=== PATIENT | male | born 1985 | race Asian ===

== ENCOUNTER 2020-02-01 02:49 | Inpatient (IN) | payer BC, OTHER ==
[2020-02-01] MEDS ORDERED: Sodium Chloride 0.9% 10 ML Syringe FLUSH PRN (03:14)
[2020-02-01] MEDS ORDERED: Dexamethasone 10 MG/ML SDV IVPUSH ONE (03:14)
[2020-02-01] MEDS ORDERED: Sodium Chloride 0.9% 2.5 ML Syringe FLUSH PRN (03:14)
[2020-02-01] MEDS ORDERED: Acetaminophen 500 MG Tab PO ONE (03:14)
[2020-02-01] MEDS ORDERED: cefTRIAXone 1 GM in Premix Bag 1 BAG IV ONE (03:14)
[2020-02-01] MEDS ORDERED: Sodium Chloride 0.9% 1,000 ML IV ONE (03:14)
[2020-02-01] MEDS ORDERED: Azithromycin 500 MG in Sodium Chloride 0.9% 250 ML IV SCH (03:30)
--- NOTE | 2020-02-01 04:28 | CR ---
Indication: Shortness of breath, COVID positive. Technique: Chest 1 view Comparison: None Findings/Impression: Cardiovascular and mediastinum: Heart size and vasculature are normal in caliber and appearance. Lungs and pleural space: No pleural effusion or pneumothorax. Bilateral hazy opacities consistent with a viral pneumonia. Bones and soft tissues: No acute findings. Dictated by Swapnil Davenport MD @ Feb 01 2020 4:25AM Signed by Dr. Swapnil Davenport @ Feb 01 2020 4:26AM
[2020-02-01 04:37] LABS: BLOOD UREA NITROGEN,BUN 13 mg/dL (7.0-18.0); CARBON DIOXIDE,CO2 27.1 mmol/L (21.0-32.0); CHLORIDE,CL 96 mmol/L (98-107); GLUCOSE RANDOM 93 mg/dL (74-106); POTASSIUM,K 3.4 mmol/L (3.5-5.1); SODIUM,NA 134 mmol/L (136-148)
--- NOTE | 2020-02-01 05:20 | EDM.PDOC ---
ED HPI GENERAL MEDICAL PROBLEM - General Chief Complaint: Respiratory Problem Stated Complaint: SHORTNESS OF BREATH, COVID POSITIVE Time Seen by Provider: 02/01/20 03:01 - History of Present Illness INITIAL COMMENTS - FREE TEXT/NARRATIVE: HISTORY AND PHYSICAL: History of present illness: This is a 34-year-old gentleman with no history significant for hypertension, diabetes, liver, lung, kidney problems who presents ER today secondary to severe shortness of breath and feeling extremely ill this evening. Patient was diagnosed with coronavirus several days ago and [place]. Patient reports that he was having fevers, shortness of breath, diarrhea, headaches and diffuse myalgias so he had a coronavirus test done and he was confirmed positive. Patient drove back home to [place] and is currently staying at a hotel room by himself in order to quarantine himself from his family. Patient reports that this evening while he was in the hotel room he became extremely short of breath and felt like he was unable to breathe. Patient presents the ED for further evaluation assistance with his symptoms. Patient reports fevers at home. Patient reports nausea. Patient reports diffuse myalgias. Patient reports he is able to tolerate p.o. solids and liquids but has had decreased appetite for the last 1 to 2 days. Review of systems: As per history of present illness and below otherwise all systems reviewed and negative. Past medical history: As per history of present illness and as reviewed below otherwise noncontributory. Surgical history: As per history of present illness and as reviewed below otherwise nonco ntributory. Social history: No reported history of drug or alcohol abuse. Family history: As per history of present illness and as reviewed below otherwise noncontributory. Physical exam: Constitutional: Patient is oriented to person, place, and time. Appears well- developed and well-nourished. No distress. HEENT: Moist mucous membranes Head: Normocephalic and atraumatic Eyes: Right eye exhibits no discharge. Left eye exhibits no discharge. No scleral icterus Neck: Normal range of motion. No tracheal deviation present. Neck supple, no nuchal rigidity, no photophobia, no Kernig's sign or Brudzinski sign, patient does not present with signs or symptoms of be consistent with meningitis. Cardiovascular: Normal rate and regular rhythm. Tachycardic with a heart rate of 110 Pulmonary: Effort normal, no respiratory distress. No wheezing rales or rhonchi Abd: Soft, nondistended, no rebound/guarding, no psoas or obturator signs, no tenderness at Mcberney's point, no Ly's sign. Pt does not present with an exam that would be consistent with an acute surgical abdomen at this time Musculoskeletal: Normal range of motion Neurologic: Alert and oriented to person, place and time. Skin: [place], warm and dry. Psychiatric: Normal mood and affect. Behavior is normal. Judgment and thought content normal. Nursing note and vital signs have been reviewed Diagnostics: Chest Xray: Normal cardiac silhouette No infiltrates or effusions identified. No PTX No evidence of acute bony fracture. As interpreted by ER MD: Sherri ABG reveals 7.4 CBC/CMP within normal limits EKG: Normal sinus rhythm heart rate of [address]-T wave abnormalities Normal axis No evidence of ST elevation ID As interpreted by ER physician: Sherri [employer]: Dexamethasone 6 mg p.o. Rocephin 1 g IV Zithromax 500 mg IV 2 L O2 nasal cannula in order to maintain oxygen level greater than 92% is required. Assessment and plan this is a 34-year-old gentleman who has recent diagnosis of coronavirus presents the ER today secondary to significant shortness of breath this evening. Upon arrival to the ED patient's pulse ox varied between 89 to 91% on room air. On 2 L of nasal cannula patient's pulse ox currently is 95%. Patient's PaO2 is markedly diminished at 64. Patient is a healthy 34-year-old non-smoker. Given patient's hypoxia and O2 requirement patient was given dex amethasone p.o. and will be admitted for consideration of room to severe IV. Patient was empirically started on Rocephin and Zithromax given his dyspnea fever and cough. Case discussed with Dr. Gamez who agrees with current plan. Definitive disposition and diagnosis as appropriate pending reevaluation and review of above. 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 [No Known Home Meds] 02/01/20 [History] Past Medical History - Past Health History Medical/Surgical History: Denies Medical/Surgical History Social & Family History - Tobacco Use Smoking Status *Q: Never Smoker Second Hand Smoke Exposure: No - Recreational Drug Use Recreational Drug Use: No ED ROS GENERAL - Review of Systems Review Of Systems: See Below ED EXAM, GENERAL - Physical Exam Exam: See Below Course - Vital Signs Last Recorded V/S: Last Vital Signs Temp 96.0 F L 02/01/20 03:04 Pulse 101 H 02/01/20 04:19 Resp 24 H 02/01/20 04:19 BP 141/87 H 02/01/20 04:19 Pulse Ox 95 02/01/20 04:19 - Orders/Labs/Meds Orders: Active Orders 24 hr Category Date Time Status EKG 12 Lead [EKG Documentation Completion] [RC] STAT Care 02/01/20 03:17 Active CULTURE BLOOD [BC] Stat Lab 02/01/20 03:48 Received CULTURE BLOOD [BC] Stat Lab 02/01/20 03:55 Received Azithromycin [Zithromax] 500 mg Med 02/01/20 03:30 Active Sodium Chloride 0.9% [Normal Saline (AdvBag)] 250 ml IV ONETIME Sodium Chloride 0.9% [Saline Flush] Med 02/01/20 03:14 Active 10 ml FLUSH ASDIRECTED PRN Sodium Chloride 0.9% [Saline Flush] Med 02/01/20 03:14 Active 2.5 ml FLUSH ASDIRECTED PRN Blood Culture x2 Reflex Set [OM.PC] Stat Oth 02/01/20 03:14 Ordered Saline Lock Insert [OM.PC] Stat Oth 02/01/20 03:14 Ordered Medication Orders Azithromycin 500 mg/ Sodium (Chloride) 250 mls @ 250 mls/hr IV ONETIME KRISTEN Last Admin: 02/01/20 04:31 Dose: 250 mls/hr Documented by: SHERRI Sodium Chloride (Saline Flush) 10 ml FLUSH ASDIRECTED PRN PRN Reason: Keep Vein Open Sodium Chloride (Saline Flush) 2.5 ml FLUSH ASDIRECTED PRN PRN Reason: Keep Vein Open Labs: Laboratory Tests 02/01/20 02/01/20 02/01/20 Range/Units 03:48 03:48 03:48 WBC 8.29 (4.0-11.0) K/uL RBC 5.80 (4.50-5.90) M/uL Hgb 16.4 (13.0-17.0) g/dL Hct 49.6 (38.0-50.0) % MCV 85.5 (80.0-98.0) fL MCH 28.3 (27.0-32.0) pg MCHC 33.1 (31.0-37.0) g/dL RDW Std Deviation 42.5 (28.0-62.0) fl RDW Coeff of Leopoldo 14 (11.0-15.0) % Plt Count 232 (150-400) K/uL MPV 9.20 (7.40-12.00) fL Neut % (Auto) 67.8 (48.0-80.0) % Lymph % (Auto) 20.0 (16.0-40.0) % Gillespie % (Auto) 11.9 (0.0-15.0) % Eos % (Auto) 0.1 (0.0-7.0) % Baso % (Auto) 0.2 (0.0-1.5) % Neut # (Auto) 5.6 (1.4-5.7) K/uL Lymph # (Auto) 1.7 (0.6-2.4) K/uL Gillespie # (Auto) 1.0 H (0.0-0.8) K/uL Eos # (Auto) 0.0 (0.0-0.7) K/uL Baso # (Auto) 0.0 (0.0-0.1) K/uL Nucleated RBC % 0.0 /100WBC Nucleated RBCs # 0 K/uL ABG pH (7.35-7.45) ABG pCO2 (35-45) mmHG ABG pO2 (75-100) mmHG ABG HCO3 (22-26) mEq/L ABG Total CO2 ABG Base Excess (-2.0-2.0) Lactate 1.5 (0.20-2.00) mmol/L Sodium 134 L (136-148) mmol/L Potassium 3.4 L (3.5-5.1) mmol/L Chloride 96 L (98-107) mmol/L Carbon Dioxide 27.1 (21.0-32.0) mmol/L BUN 13 (7.0-18.0) mg/dL Creatinine 1.0 (0.8-1.3) mg/dL Est Cr Clr Drug Dosing 107.47 mL/min Estimated GFR (MDRD) > 60.0 ml/min Glucose 93 (74-106) mg/dL Calcium 7.5 L (8.5-10.1) mg/dL Total Bilirubin 0.3 (0.2-1.0) mg/dL AST 40 H (15-37) IU/L ALT 68 H (14-63) IU/L Alkaline Phosphatase 42 L (46-116) U/L Troponin I < 0.050 (0.000-0.056) ng/mL Total Protein 8.0 (6.4-8.2) g/dL Albumin 3.2 L (3.4-5.0) g/dL Globulin 4.8 H (2.6-4.0) g/dL Albumin/Globulin Ratio 0.7 L (0.9-1.6) 02/01/20 Range/Units 04:46 WBC (4.0-11.0) K/uL RBC (4.50-5.90) M/uL Hgb (13.0-17.0) g/dL Hct (38.0-50.0) % MCV (80.0-98.0) fL MCH (27.0-32.0) pg MCHC (31.0-37.0) g/dL RDW Std Deviation (28.0-62.0) fl RDW Coeff of Leopoldo (11.0-15.0) % Plt Count (150-400) K/uL MPV (7.40-12.00) fL Neut % (Auto) (48.0-80.0) % Lymph % (Auto) (16.0-40.0) % Gillespie % (Auto) (0.0-15.0) % Eos % (Auto) (0.0-7.0) % Baso % (Auto) (0.0-1.5) % Neut # (Auto) (1.4-5.7) K/uL Lymph # (Auto) (0.6-2.4) K/uL Gillespie # (Auto) (0.0-0.8) K/uL Eos # (Auto) (0.0-0.7) K/uL Baso # (Auto) (0.0-0.1) K/uL Nucleated RBC % /100WBC Nucleated RBCs # K/uL ABG pH 7.445 (7.35-7.45) ABG pCO2 33 L (35-45) mmHG ABG pO2 64 L (75-100) mmHG ABG HCO3 23 (22-26) mEq/L ABG Total CO2 19.7 ABG Base Excess -0.7 (-2.0-2.0) Lactate (0.20-2.00) mmol/L Sodium (136-148) mmol/L Potassium (3.5-5.1) mmol/L Chloride (98-107) mmol/L Carbon Dioxide (21.0-32.0) mmol/L BUN (7.0-18.0) mg/dL Creatinine (0.8-1.3) mg/dL Est Cr Clr Drug Dosing mL/min Estimated GFR (MDRD) ml/min Glucose (74-106) mg/dL Calcium (8.5-10.1) mg/dL Total Bilirubin (0.2-1.0) mg/dL AST (15-37) IU/L ALT (14-63) IU/L Alkaline Phosphatase (46-116) U/L Troponin I (0.000-0.056) ng/mL Total Protein (6.4-8.2) g/dL Albumin (3.4-5.0) g/dL Globulin (2.6-4.0) g/dL Albumin/Globulin Ratio (0.9-1.6) Meds: Medications Generic Name Dose Route Start Last Admin Trade Name Freq PRN Reason Stop Dose Admin Azithromycin 500 mg/ Sodium 250 mls @ 250 mls/hr 02/01/20 03:30 02/01/20 04:31 Chloride IV 250 mls/hr ONETIME KRISTEN Administration Sodium Chloride 10 ml 02/01/20 03:14 Saline Flush FLUSH ASDIRECTED PRN Keep Vein Open Sodium Chloride 2.5 ml 02/01/20 03:14 Saline Flush FLUSH ASDIRECTED PRN Keep Vein Open Discontinued Medications Generic Name Dose Route Start Last Admin Trade Name Freq PRN Reason Stop Dose Admin Acetaminophen 1,000 mg 02/01/20 03:14 02/01/20 03:50 Tylenol Extra Strength PO 02/01/20 03:15 1,000 mg ONETIME ONE Administration Dexamethasone 10 mg 02/01/20 03:14 02/01/20 03:52 Dexamethasone IVPUSH 02/01/20 03:15 10 mg ONETIME ONE Administration Dexamethasone 6 mg 02/01/20 05:11 Dexamethasone PO 02/01/20 05:12 NOW STA Sodium Chloride 1,000 mls @ 999 mls/hr 02/01/20 03:14 02/01/20 03:52 Normal Saline IV 02/01/20 04:14 999 mls/hr .Bolus ONE Administration Ceftriaxone Sodium/Dextrose 1 50 mls @ 100 mls/hr 02/01/20 03:14 02/01/20 03:59 gm/ Premix IV 02/01/20 03:43 100 mls/hr ONETIME ONE Administration Departure - Departure Time of Disposition: 05:23 Disposition: Admitted As Inpatient 66 Condition: Good Clinical Impression: 2019 novel coronavirus disease (COVID-19), 2019 novel coronavirus–infected pneumonia (NCIP)#8211;infected pneumonia (NCIP), Hypoxia, Hypoxemia, Pneumonia - Discharge Information Referrals: PCP,None [Primary Care Provider] - Sepsis Event Note (ED) - Evaluation Sepsis Screening Result: Possible Sepsis Risk - Focused Exam Vital Signs: Vital Signs Temp Pulse Resp BP Pulse Ox 02/01/20 04:19 101 H 24 H 141/87 H 95 02/01/20 03:04 96.0 F L 110 H 22 H 113/86 94 L - My Orders Last 24 Hours: My Active Orders 02/01/20 03:14 Sodium Chloride 0.9% [Saline Flush] 10 ml FLUSH ASDIRECTED PRN Sodium Chloride 0.9% [Saline Flush] 2.5 ml FLUSH ASDIRECTED PRN Blood Culture x2 Reflex Set [OM.PC] Stat Saline Lock Insert [OM.PC] Stat 02/01/20 03:17 EKG 12 Lead [EKG Documentation Completion] [RC] STAT 02/01/20 03:30 Azithromycin [Zithromax] 500 mg Sodium Chloride 0.9% [Normal Saline (AdvBag)] 250 ml IV ONETIME 02/01/20 03:48 CULTURE BLOOD [BC] Stat 02/01/20 03:55 CULTURE BLOOD [BC] Stat - Assessment/Plan Last 24 Hours: My Active Orders 02/01/20 03:14 Sodium Chloride 0.9% [Saline Flush] 10 ml FLUSH ASDIRECTED PRN Sodium Chloride 0.9% [Saline Flush] 2.5 ml FLUSH ASDIRECTED PRN Blood Culture x2 Reflex Set [OM.PC] Stat Saline Lock Insert [OM.PC] Stat 02/01/20 03:17 EKG 12 Lead [EKG Documentation Completion] [RC] STAT 02/01/20 03:30 Azithromycin [Zithromax] 500 mg Sodium Chloride 0.9% [Normal Saline (AdvBag)] 250 ml IV ONETIME 02/01/20 03:48 CULTURE BLOOD [BC] Stat 02/01/20 03:55 CULTURE BLOOD [BC] Stat
[2020-02-01] MEDS ORDERED: Dexamethasone 4 MG Tab ONE (05:27)
[2020-02-01] MEDS ORDERED: Dexamethasone 4 MG Tab PO ONE (05:28)
--- NOTE | 2020-02-01 07:32 | PCM.HP.2 ---
H&P History of Present Illness - General Date of Service: 02/01/20 Admit Problem/Dx: Admission Diagnosis/Problem Admission Diagnosis/Problem Hypoxemia requiring supplemental oxygen Source of Information: Patient History Limitations: Reports: No Limitations - History of Present Illness Initial Comments - Free Text/Narative: Patient is a 34-year-old male with no significant past medical history presenting today with acute onset shortness of breath, headache, myalgia, fever/subjective and mild diarrhea. Of note patient did test positive on Tuesday in [facility] for COVID; was exposed to a coworker also tested positive. Patient was also seen at a facility down in [place] and was discharged the following day while on 2 L of supplemental oxygen pt did just recently drive back from [place], [place]; drove straight 12 hours ED course: Chest x-ray showed normal cardiac silhouette with some bilateral hazy opacities consistent with viral pneumonia. EKG showed no evidence of ST elevation and or depression Patient is currently needing 2 L of O2; similar to O2 requirements on discharge from outside facility. Dose of Rocephin and azithromycin started. Given 6 mg p.o. dexamethasone as well Bedside; patient complaining of increasing fevers and chills. Shortness of breath has improved marginally. Last episode and bout of diarrhea yesterday Denies any other acute concerns and or symptoms. Generalized Pain Score (Numeric/FACES): 6 - Related Data Allergies/Adverse Reactions: Allergies Allergy/AdvReac Type Severity Reaction Status Date / Time No Known Allergies Allergy Verified 02/01/20 03:11 Home Medications: Home Meds . [No Known Home Meds] 02/01/20 [History] Past Medical History - Past Health History Medical/Surgical History: Denies Medical/Surgical History Social & Family History - Tobacco Use Smoking Status *Q: Never Smoker Second Hand Smoke Exposure: No - Recreational Drug Use Recreational Drug Use: No H&P Review of Systems - Review of Systems: Review Of Systems: See Below General: Reports: Fever, Chills, Fatigue HEENT: Reports: No Symptoms Pulmonary: Reports: Shortness of Breath. Denies: Wheezing, Cough, Sputum Cardiovascular: Reports: No Symptoms Gastrointestinal: Reports: Diarrhea, Decreased Appetite. Denies: Constipation, Nausea Genitourinary: Reports: No Symptoms Musculoskeletal: Reports: Muscle Pain Skin: Reports: No Symptoms Psychiatric: Reports: No Symptoms Neurological: Reports: Headache Hematologic/Lymphatic: Reports: No Symptoms Exam - Exam Exam: See Below - Vital Signs Vital Signs: Last Vital Signs Temp 96.0 F L 02/01/20 03:04 Pulse 85 02/01/20 07:01 Resp 20 02/01/20 07:01 BP 108/73 02/01/20 07:01 Pulse Ox 95 02/01/20 07:01 Weight: 90.718 kg - Exam Quality Assessment: Supplemental Oxygen General: Alert, Oriented, Cooperative HEENT: EOMI Neck: Supple, Trachea Midline Lungs: Clear to Auscultation, Normal Respiratory Effort Cardiovascular: Regular Rate, Regular Rhythm GI/Abdominal Exam: Soft, Non-Tender Back Exam: Normal Inspection Extremities: Normal Inspection, Non-Tender, No Pedal Edema Skin: Warm Neurological: Cranial Nerves Intact Neuro Extensive - Mental Status: Alert, Oriented x3, Normal Mood/Affect Neuro Extensive - Motor, Sensory, Reflexes: CN II-XII Intact Psychiatric: Alert, Normal Affect, Normal Mood - Patient Data Lab Results Last 24 hrs: Laboratory Results - last 24 hr 02/01/20 02/01/20 02/01/20 Range/Units 03:48 03:48 03:48 WBC 8.29 (4.0-11.0) K/uL RBC 5.80 (4.50-5.90) M/uL Hgb 16.4 (13.0-17.0) g/dL Hct 49.6 (38.0-50.0) % MCV 85.5 (80.0-98.0) fL MCH 28.3 (27.0-32.0) pg MCHC 33.1 (31.0-37.0) g/dL RDW Std Deviation 42.5 (28.0-62.0) fl RDW Coeff of Leopoldo 14 (11.0-15.0) % Plt Count 232 (150-400) K/uL MPV 9.20 (7.40-12.00) fL Neut % (Auto) 67.8 (48.0-80.0) % Lymph % (Auto) 20.0 (16.0-40.0) % Wise % (Auto) 11.9 (0.0-15.0) % Eos % (Auto) 0.1 (0.0-7.0) % Baso % (Auto) 0.2 (0.0-1.5) % Neut # (Auto) 5.6 (1.4-5.7) K/uL Lymph # (Auto) 1.7 (0.6-2.4) K/uL Wise # (Auto) 1.0 H (0.0-0.8) K/uL Eos # (Auto) 0.0 (0.0-0.7) K/uL Baso # (Auto) 0.0 (0.0-0.1) K/uL Nucleated RBC % 0.0 /100WBC Nucleated RBCs # 0 K/uL ABG pH (7.35-7.45) ABG pCO2 (35-45) mmHG ABG pO2 (75-100) mmHG ABG HCO3 (22-26) mEq/L ABG Total CO2 ABG Base Excess (-2.0-2.0) Lactate 1.5 (0.20-2.00) mmol/L Sodium 134 L (136-148) mmol/L Potassium 3.4 L (3.5-5.1) mmol/L Chloride 96 L (98-107) mmol/L Carbon Dioxide 27.1 (21.0-32.0) mmol/L BUN 13 (7.0-18.0) mg/dL Creatinine 1.0 (0.8-1.3) mg/dL Est Cr Clr Drug Dosing 107.47 mL/min Estimated GFR (MDRD) > 60.0 ml/min Glucose 93 (74-106) mg/dL Calcium 7.5 L (8.5-10.1) mg/dL Total Bilirubin 0.3 (0.2-1.0) mg/dL AST 40 H (15-37) IU/L ALT 68 H (14-63) IU/L Alkaline Phosphatase 42 L (46-116) U/L Troponin I < 0.050 (0.000-0.056) ng/mL Total Protein 8.0 (6.4-8.2) g/dL Albumin 3.2 L (3.4-5.0) g/dL Globulin 4.8 H (2.6-4.0) g/dL Albumin/Globulin Ratio 0.7 L (0.9-1.6) 02/01/20 Range/Units 04:46 WBC (4.0-11.0) K/uL RBC (4.50-5.90) M/uL Hgb (13.0-17.0) g/dL Hct (38.0-50.0) % MCV (80.0-98.0) fL MCH (27.0-32.0) pg MCHC (31.0-37.0) g/dL RDW Std Deviation (28.0-62.0) fl RDW Coeff of Leopoldo (11.0-15.0) % Plt Count (150-400) K/uL MPV (7.40-12.00) fL Neut % (Auto) (48.0-80.0) % Lymph % (Auto) (16.0-40.0) % Wise % (Auto) (0.0-15.0) % Eos % (Auto) (0.0-7.0) % Baso % (Auto) (0.0-1.5) % Neut # (Auto) (1.4-5.7) K/uL Lymph # (Auto) (0.6-2.4) K/uL Wise # (Auto) (0.0-0.8) K/uL Eos # (Auto) (0.0-0.7) K/uL Baso # (Auto) (0.0-0.1) K/uL Nucleated RBC % /100WBC Nucleated RBCs # K/uL ABG pH 7.445 (7.35-7.45) ABG pCO2 33 L (35-45) mmHG ABG pO2 64 L (75-100) mmHG ABG HCO3 23 (22-26) mEq/L ABG Total CO2 19.7 ABG Base Excess -0.7 (-2.0-2.0) Lactate (0.20-2.00) mmol/L Sodium (136-148) mmol/L Potassium (3.5-5.1) mmol/L Chloride (98-107) mmol/L Carbon Dioxide (21.0-32.0) mmol/L BUN (7.0-18.0) mg/dL Creatinine (0.8-1.3) mg/dL Est Cr Clr Drug Dosing mL/min Estimated GFR (MDRD) ml/min Glucose (74-106) mg/dL Calcium (8.5-10.1) mg/dL Total Bilirubin (0.2-1.0) mg/dL AST (15-37) IU/L ALT (14-63) IU/L Alkaline Phosphatase (46-116) U/L Troponin I (0.000-0.056) ng/mL Total Protein (6.4-8.2) g/dL Albumin (3.4-5.0) g/dL Globulin (2.6-4.0) g/dL Albumin/Globulin Ratio (0.9-1.6) Result Diagrams: 02/01/20 03:48 02/01/20 03:48 Sepsis Event Note - Evaluation Sepsis Screening Result: Possible Sepsis Risk - Focused Exam Vital Signs: Vital Signs Temp Pulse Resp BP Pulse Ox 02/01/20 07:01 85 20 108/73 95 02/01/20 06:33 81 20 118/77 95 02/01/20 05:21 94 22 H 122/81 96 02/01/20 04:19 101 H 24 H 141/87 H 95 02/01/20 03:04 96.0 F L 110 H 22 H 113/86 94 L Problem List Initiated/Reviewed/Updated: Yes Orders Last 24hrs: Active Orders 24 hr Category Date Time Status Patient Status [ADT] Routine ADT 02/01/20 05:24 Active EKG 12 Lead [EKG Documentation Completion] [RC] STAT Care 02/01/20 03:17 Active Regular Diet [DIET] Diet 02/01/20 Breakfast Active CULTURE BLOOD [BC] Stat Lab 02/01/20 03:48 Received CULTURE BLOOD [BC] Stat Lab 02/01/20 03:55 Received Azithromycin [Zithromax] 500 mg Med 02/01/20 03:30 Active Sodium Chloride 0.9% [Normal Saline (AdvBag)] 250 ml IV ONETIME Remdesivir (Eua) [Remdesivir (EUA)] 200 mg Med 02/01/20 07:09 Ordered Sodium Chloride 0.9% [Normal Saline] 250 ml IV ONETIME Sodium Chloride 0.9% [Saline Flush] Med 02/01/20 03:14 Active 10 ml FLUSH ASDIRECTED PRN Sodium Chloride 0.9% [Saline Flush] Med 02/01/20 03:14 Active 2.5 ml FLUSH ASDIRECTED PRN Blood Culture x2 Reflex Set [OM.PC] Stat Oth 02/01/20 03:14 Ordered Saline Lock Insert [OM.PC] Stat Oth 02/01/20 03:14 Ordered Medication Orders Azithromycin 500 mg/ Sodium (Chloride) 250 mls @ 250 mls/hr IV ONETIME KRISTEN Last Admin: 02/01/20 04:31 Dose: 250 mls/hr Documented by: SHERRI Remdesivir 200 mg/ Sodium (Chloride) 250 mls @ 250 mls/hr IV ONETIME ONE Stop: 02/01/20 07:10 Sodium Chloride (Saline Flush) 10 ml FLUSH ASDIRECTED PRN PRN Reason: Keep Vein Open Sodium Chloride (Saline Flush) 2.5 ml FLUSH ASDIRECTED PRN PRN Reason: Keep Vein Open Assessment/Plan Comment:: Assessment 1. Acute hypoxemic respiratory failure secondary to COVID 2. Mild hypokalemia 3. Mild transaminitis 4. Elevated d-dimer in setting of positive COVID Plan Admit inpatient. Full code I's and O's per routine Vitals per routine Maintain O2 saturation remained 94% with supplemental oxygen DVT prophylaxis Lovenox daily GI prophylaxis: Pantoprazole daily 1. Respiratory failure: continue supplemental oxygen, Remdesevir 100 mg daily thereafter with dexamethasone. Acapella PRN Tylenol Elevated d-dimer: Low Wells score; currently not tachypneic and O2 requirement started before prolonged drive of 12 hours. If Tachypnea develops and or increasing need for O2 requirements consider CT angio. Low suspicion for pulmonary emboli based off of history and physical and Wells score. Continue Lovenox for anticoagulation; continue to monitor for any respiratory distress. Mild transaminitis in setting of COVID: Recheck in a.m. Troponin x1- 2. Replete electrolytes as needed 3. Continue Azithromycin and ceftriaxone for concerns for superimposed bacterial infection
[2020-02-01] MEDS ORDERED: Acetaminophen 500 MG Tab PO PRN (08:40)
[2020-02-01] MEDS: Pantoprazole 40 MG Tab.CR PO SCH (10:13)
[2020-02-01] MEDS: Enoxaparin 40 MG/0.4 ML Syringe SUBCUT SCH (10:13)
[2020-02-01] MEDS ORDERED: Potassium Chloride 20 MEQ Tab.ER PO ONE (10:39)
[2020-02-02] MEDS: Pantoprazole 40 MG Tab.CR PO SCH (06:35)
[2020-02-02] MEDS: Enoxaparin 40 MG/0.4 ML Syringe SUBCUT SCH (09:22)
[2020-02-02] MEDS: Dexamethasone 4 MG Tab PO SCH (09:22)
[2020-02-02] MEDS ORDERED: Sodium Chloride 0.9% 250 ML IV SCH (09:45)
[2020-02-02] MEDS: REMDESIVIR (EUA) 100 MG in Sodium Chloride 0.9% 100 ML IV SCH (10:54)
--- NOTE | 2020-02-02 12:16 | PCM.PN ---
- General Info Date of Service: 02/02/20 Subjective Update: Bedside: c.o some cough and mild diarrhea last night; however mentions his breathing has improved Functional Status: Reports: Pain Controlled - Review of Systems General: Reports: No Symptoms HEENT: Reports: No Symptoms Pulmonary: Reports: Cough. Denies: Wheezing Cardiovascular: Reports: No Symptoms Gastrointestinal: Reports: Diarrhea. Denies: Constipation, Decreased Appetite, Nausea, Vomiting Genitourinary: Reports: No Symptoms Musculoskeletal: Reports: No Symptoms Skin: Reports: No Symptoms Neurological: Reports: No Symptoms Psychiatric: Reports: No Symptoms - Patient Data Vitals - Most Recent: Last Vital Signs Temp 98.2 F 02/02/20 12:00 Pulse 82 02/02/20 12:00 Resp 18 02/02/20 12:00 BP 125/75 02/02/20 12:00 Pulse Ox 96 02/02/20 12:00 Weight - Most Recent: 90.718 kg I&O - Last 24 Hours: Intake & Output 02/01/20 02/02/20 02/02/20 22:59 06:59 14:59 Intake Total 960 650 Output Total 1600 800 Balance -640 -150 Que Results Last 24 Hours: Microbiology 02/01/20 03:55 Aerobic Blood Culture - Preliminary Blood - Venous - Lab Draw NO GROWTH AFTER 1 DAY Anaerobic Blood Culture - Preliminary NO GROWTH AFTER 1 DAY 02/01/20 03:48 Aerobic Blood Culture - Preliminary Blood - Venous NO GROWTH AFTER 1 DAY Anaerobic Blood Culture - Preliminary NO GROWTH AFTER 1 DAY Med Orders - Current: Current Medications Acetaminophen (Tylenol Extra Strength) 500 mg PO Q4H PRN PRN Reason: Fever Dexamethasone (Dexamethasone) 6 mg PO DAILY [facility] Last Admin: 02/02/20 09:22 Dose: 6 mg Documented by: Enoxaparin Sodium (Lovenox) 40 mg SUBCUT Q24H [facility] Last Admin: 02/02/20 09:22 Dose: 40 mg Documented by: Remdesivir 100 mg/ Sodium (Chloride) 100 mls @ 100 mls/hr IV Q24H [facility] Stop: 02/05/20 11:44 Last Admin: 02/02/20 10:54 Dose: 100 mls/hr Documented by: Sodium Chloride (Normal Saline) 250 mls @ 999 mls/hr IV BOLUS [facility] Last Admin: 02/02/20 10:11 Dose: 999 mls/hr Documented by: Pantoprazole Sodium (Protonix) 40 mg PO ACBREAKFAST [facility] Last Admin: 02/02/20 06:35 Dose: 40 mg Documented by: Sodium Chloride (Saline Flush) 10 ml FLUSH ASDIRECTED PRN PRN Reason: Keep Vein Open Sodium Chloride (Saline Flush) 2.5 ml FLUSH ASDIRECTED PRN PRN Reason: Keep Vein Open Discontinued Medications Acetaminophen (Tylenol Extra Strength) 1,000 mg PO ONETIME ONE Stop: 02/01/20 03:15 Last Admin: 02/01/20 03:50 Dose: 1,000 mg Documented by: Dexamethasone (Dexamethasone) 10 mg IVPUSH ONETIME ONE Stop: 02/01/20 03:15 Last Admin: 02/01/20 03:52 Dose: 10 mg Documented by: Dexamethasone (Dexamethasone) 6 mg PO NOW STA Stop: 02/01/20 05:12 Last Admin: 02/01/20 05:30 Dose: Not Given Documented by: Dexamethasone (Dexamethasone) 6 mg PO ONETIME ONE Stop: 02/01/20 05:29 Last Admin: 02/01/20 05:35 Dose: 6 mg Documented by: Dexamethasone (Dexamethasone) Confirm Administered Dose 8 mg .ROUTE .STK-MED ONE Stop: 02/01/20 05:28 Last Admin: 02/01/20 06:34 Dose: Not Given Documented by: Sodium Chloride (Normal Saline) 1,000 mls @ 999 mls/hr IV .Bolus ONE Stop: 02/01/20 04:14 Last Admin: 02/01/20 03:52 Dose: 999 mls/hr Documented by: Ceftriaxone Sodium/Dextrose 1 (gm/ Premix) 50 mls @ 100 mls/hr IV ONETIME ONE Stop: 02/01/20 03:43 Last Admin: 02/01/20 03:59 Dose: 100 mls/hr Documented by: Azithromycin 500 mg/ Sodium (Chloride) 250 mls @ 250 mls/hr IV ONETIME [facility] Last Admin: 02/01/20 04:31 Dose: 250 mls/hr Documented by: Remdesivir 200 mg/ Sodium (Chloride) 250 mls @ 125 mls/hr IV ONETIME ONE Stop: 02/01/20 10:59 Last Admin: 02/01/20 10:14 Dose: 125 mls/hr Documented by: Potassium Chloride (Klor-Con M20) 20 meq PO ONETIME ONE Stop: 02/01/20 10:40 Last Admin: 02/01/20 12:17 Dose: 20 meq Documented by: - Exam Quality Assessment: No: Supplemental Oxygen General: Alert, Oriented, Cooperative HEENT: Mucous Membr. Moist/[place] Neck: Supple Lungs: Clear to Auscultation, Normal Respiratory Effort Cardiovascular: Regular Rate, Regular Rhythm GI/Abdominal Exam: Soft, Non-Tender Back Exam: Normal Inspection Extremities: Normal Inspection Skin: Warm, Intact Neurological: No New Focal Deficit Psy/Mental Status: Alert, Normal Affect, Normal Mood Sepsis Event Note - Evaluation Sepsis Screening Result: No Definite Risk - Focused Exam Vital Signs: Vital Signs Temp Pulse Resp BP Pulse Ox 02/02/20 12:00 98.2 F 82 18 125/75 96 02/02/20 08:00 98.7 F 84 18 123/75 94 L 02/02/20 03:21 98.1 F 71 18 130/89 92 L - Problem List Review Problem List Initiated/Reviewed/Updated: Yes - My Orders Last 24 Hours: My Active Orders 02/01/20 11:28 Code Status [Resuscitation Status] Routine 02/02/20 05:11 CBC WITH AUTO DIFF [HEME] AM COMPREHENSIVE METABOLIC PN,CMP [CHEM] AM 02/02/20 09:00 dexAMETHasone 6 mg PO DAILY 02/02/20 09:45 Sodium Chloride 0.9% [Normal Saline] 250 ml IV BOLUS 02/02/20 10:45 Remdesivir (Eua) [Remdesivir (EUA)] 100 mg Sodium Chloride 0.9% [Normal Saline] 100 ml IV Q24H 02/03/20 05:11 CBC WITH AUTO DIFF [HEME] AM COMPREHENSIVE METABOLIC PN,CMP [CHEM] AM 02/04/20 05:11 CBC WITH AUTO DIFF [HEME] AM COMPREHENSIVE METABOLIC PN,CMP [CHEM] AM - Plan Plan:: Assessment 1. Acute hypoxemic respiratory failure secondary to COVID: improving 2. Mild hypokalemia 3. Mild transaminitis 4. Elevated d-dimer in setting of positive COVID Plan Admit inpatient. Full code I's and O's per routine Vitals per routine Maintain O2 saturation remained 94% with supplemental oxygen DVT prophylaxis Lovenox daily GI prophylaxis: Pantoprazole daily 1. Respiratory failure: continue supplemental oxygen, Remdesevir 100 mg daily thereafter with dexamethasone. Much improved since admission Diarrhea: no loose stools this AM ; continue to monitor provided 250 cc bolus since labs could not be drawn ; will retry this afternoon Acapella PRN Tylenol Elevated d-dimer: Low Wells score; currently not tachypneic and O2 requirement started before prolonged drive of 12 hours. If Tachypnea develops and or increasing need for O2 requirements consider CT angio. Low suspicion for pulmonary emboli based off of history and physical and Wells score. Continue Lovenox for anticoagulation; continue to monitor for any respiratory distress. Mild transaminitis in setting of COVID: Recheck in a.m. Troponin x1- 2. Replete electrolytes as needed 3. Continue Azithromycin and ceftriaxone for concerns for superimposed bacterial infection
[2020-02-02] MEDS ORDERED: Azithromycin 500 MG Vial IV SCH (12:30)
[2020-02-02] MEDS ORDERED: Azithromycin 500 MG in Sodium Chloride 0.9% 250 ML IV SCH (12:45)
[2020-02-02] MEDS: Azithromycin 500 MG in Sodium Chloride 0.9% 250 ML IV SCH (12:53)
[2020-02-02] MEDS: cefTRIAXone 1 GM in Premix Bag 1 BAG IV SCH (15:15)
[2020-02-02 18:25] LABS: BLOOD UREA NITROGEN,BUN 21 mg/dL (7.0-18.0); CARBON DIOXIDE,CO2 26.8 mmol/L (21.0-32.0); CHLORIDE,CL 102 mmol/L (98-107); GLUCOSE RANDOM 167 mg/dL (74-106); POTASSIUM,K 4.4 mmol/L (3.5-5.1); SODIUM,NA 137 mmol/L (136-148)
[2020-02-03] MEDS: Pantoprazole 40 MG Tab.CR PO SCH (06:34)
[2020-02-03 07:10] LABS: BLOOD UREA NITROGEN,BUN 18 mg/dL (7.0-18.0); CHLORIDE,CL 102 mmol/L (98-107); GLUCOSE RANDOM 112 mg/dL (74-106); POTASSIUM,K 4.1 mmol/L (3.5-5.1); SODIUM,NA 138 mmol/L (136-148)
[2020-02-03] MEDS: Dexamethasone 4 MG Tab PO SCH (09:25)
[2020-02-03] MEDS: Enoxaparin 40 MG/0.4 ML Syringe SUBCUT SCH (09:26)
[2020-02-03] MEDS: REMDESIVIR (EUA) 100 MG in Sodium Chloride 0.9% 100 ML IV SCH (11:04)
[2020-02-03] MEDS: Azithromycin 500 MG in Sodium Chloride 0.9% 250 ML IV SCH (12:19)
--- NOTE | 2020-02-03 12:27 | PCM.PN ---
- General Info Date of Service: 02/03/20 - Review of Systems Systems Review Comment:: patient reports chest congestion, shortness of breath, it has improved since admission but does not feel safe going home. - Patient Data Vitals - Most Recent: Last Vital Signs Temp 36.9 C 02/03/20 08:00 Pulse 84 02/03/20 08:00 Resp 18 02/03/20 08:00 BP 122/74 02/03/20 08:00 Pulse Ox 96 02/03/20 08:00 Weight - Most Recent: 90.718 kg I&O - Last 24 Hours: Intake & Output 02/02/20 02/03/20 02/03/20 22:59 06:59 14:59 Intake Total 800 900 Output Total 1850 800 Balance -1050 100 Lab Results Last 24 Hours: Laboratory Results - last 24 hr 02/02/20 02/02/20 02/03/20 Range/Units 17:52 17:52 06:10 WBC 6.20 7.87 (4.0-11.0) K/uL RBC 5.49 5.39 (4.50-5.90) M/uL Hgb 15.2 14.8 (13.0-17.0) g/dL Hct 46.3 45.4 (38.0-50.0) % MCV 84.3 84.2 (80.0-98.0) fL MCH 27.7 27.5 (27.0-32.0) pg MCHC 32.8 32.6 (31.0-37.0) g/dL RDW Std Deviation 41.9 41.3 (28.0-62.0) fl RDW Coeff of Leopoldo 14 13 (11.0-15.0) % Plt Count 277 285 (150-400) K/uL MPV 9.10 9.00 (7.40-12.00) fL Add Manual Diff YES YES Neutrophils % (Manual) 67 55 (48.0-80.0) % Band Neutrophils % 1 9 % Lymphocytes % (Manual) 18 27 (16.0-40.0) % Monocytes % (Manual) 12 9 (0.0-15.0) % Eosinophils % (Manual) 1 (0.0-7.0) % Metamyelocytes % 1 % Absolute Seg Neuts 4.2 4.3 (1.4-5.7) Band Neutrophils # 0.1 0.7 Lymphocytes # (Manual) 1.1 2.1 (0.6-2.4) Monocytes # (Manual) 0.7 0.7 (0.0-0.8) Eosinophils # (Manual) 0.1 (0.0-0.7) Absolute Metamyelocyte 0.1 Sodium 137 (136-148) mmol/L Potassium 4.4 (3.5-5.1) mmol/L Chloride 102 (98-107) mmol/L Carbon Dioxide 26.8 (21.0-32.0) mmol/L BUN 21 H (7.0-18.0) mg/dL Creatinine 1.0 (0.8-1.3) mg/dL Est Cr Clr Drug Dosing 107.47 mL/min Estimated GFR (MDRD) > 60.0 ml/min Glucose 167 H (74-106) mg/dL Calcium 8.3 L (8.5-10.1) mg/dL Total Bilirubin 0.2 (0.2-1.0) mg/dL AST 24 (15-37) IU/L ALT 61 (14-63) IU/L Alkaline Phosphatase 42 L (46-116) U/L Total Protein 7.6 (6.4-8.2) g/dL Albumin 3.0 L (3.4-5.0) g/dL Globulin 4.6 H (2.6-4.0) g/dL Albumin/Globulin Ratio 0.7 L (0.9-1.6) 02/03/20 Range/Units 06:10 WBC (4.0-11.0) K/uL RBC (4.50-5.90) M/uL Hgb (13.0-17.0) g/dL Hct (38.0-50.0) % MCV (80.0-98.0) fL MCH (27.0-32.0) pg MCHC (31.0-37.0) g/dL RDW Std Deviation (28.0-62.0) fl RDW Coeff of Leopoldo (11.0-15.0) % Plt Count (150-400) K/uL MPV (7.40-12.00) fL Add Manual Diff Neutrophils % (Manual) (48.0-80.0) % Band Neutrophils % % Lymphocytes % (Manual) (16.0-40.0) % Monocytes % (Manual) (0.0-15.0) % Eosinophils % (Manual) (0.0-7.0) % Metamyelocytes % % Absolute Seg Neuts (1.4-5.7) Band Neutrophils # Lymphocytes # (Manual) (0.6-2.4) Monocytes # (Manual) (0.0-0.8) Eosinophils # (Manual) (0.0-0.7) Absolute Metamyelocyte Sodium 138 (136-148) mmol/L Potassium 4.1 (3.5-5.1) mmol/L Chloride 102 (98-107) mmol/L Carbon Dioxide 27.0 (21.0-32.0) mmol/L BUN 18 (7.0-18.0) mg/dL Creatinine 0.7 L (0.8-1.3) mg/dL Est Cr Clr Drug Dosing 153.53 mL/min Estimated GFR (MDRD) > 60.0 ml/min Glucose 112 H (74-106) mg/dL Calcium 8.2 L (8.5-10.1) mg/dL Total Bilirubin 0.3 (0.2-1.0) mg/dL AST 29 (15-37) IU/L ALT 56 (14-63) IU/L Alkaline Phosphatase 33 L (46-116) U/L Total Protein 7.0 (6.4-8.2) g/dL Albumin 2.8 L (3.4-5.0) g/dL Globulin 4.2 H (2.6-4.0) g/dL Albumin/Globulin Ratio 0.7 L (0.9-1.6) Que Results Last 24 Hours: Microbiology 02/01/20 03:55 Aerobic Blood Culture - Preliminary Blood - Venous - Lab Draw NO GROWTH AFTER 2 DAYS Anaerobic Blood Culture - Preliminary NO GROWTH AFTER 2 DAYS 02/01/20 03:48 Aerobic Blood Culture - Preliminary Blood - Venous NO GROWTH AFTER 2 DAYS Anaerobic Blood Culture - Preliminary NO GROWTH AFTER 2 DAYS Med Orders - Current: Current Medications Acetaminophen (Tylenol Extra Strength) 500 mg PO Q4H PRN PRN Reason: Fever Dexamethasone (Dexamethasone) 6 mg PO DAILY [facility] Last Admin: 02/03/20 09:25 Dose: 6 mg Documented by: Enoxaparin Sodium (Lovenox) 40 mg SUBCUT Q24H [facility] Last Admin: 02/03/20 09:26 Dose: 40 mg Documented by: Remdesivir 100 mg/ Sodium (Chloride) 100 mls @ 100 mls/hr IV Q24H [facility] Stop: 02/05/20 11:44 Last Admin: 02/03/20 11:04 Dose: 100 mls/hr Documented by: Sodium Chloride (Normal Saline) 250 mls @ 999 mls/hr IV BOLUS [facility] Last Admin: 02/02/20 10:11 Dose: 999 mls/hr Documented by: Ceftriaxone Sodium/Dextrose 1 (gm/ Premix) 50 mls @ 100 mls/hr IV Q24H [facility] Last Admin: 02/02/20 15:15 Dose: 100 mls/hr Documented by: Azithromycin 500 mg/ Sodium (Chloride) 250 mls @ 250 mls/hr IV Q24H [facility] Last Admin: 02/03/20 12:19 Dose: 250 mls/hr Documented by: Pantoprazole Sodium (Protonix) 40 mg PO ACBREAKFAST [facility] Last Admin: 02/03/20 06:34 Dose: 40 mg Documented by: Sodium Chloride (Saline Flush) 10 ml FLUSH ASDIRECTED PRN PRN Reason: Keep Vein Open Sodium Chloride (Saline Flush) 2.5 ml FLUSH ASDIRECTED PRN PRN Reason: Keep Vein Open Discontinued Medications Acetaminophen (Tylenol Extra Strength) 1,000 mg PO ONETIME ONE Stop: 02/01/20 03:15 Last Admin: 02/01/20 03:50 Dose: 1,000 mg Documented by: Dexamethasone (Dexamethasone) 10 mg IVPUSH ONETIME ONE Stop: 02/01/20 03:15 Last Admin: 02/01/20 03:52 Dose: 10 mg Documented by: Dexamethasone (Dexamethasone) 6 mg PO NOW STA Stop: 02/01/20 05:12 Last Admin: 02/01/20 05:30 Dose: Not Given Documented by: Dexamethasone (Dexamethasone) 6 mg PO ONETIME ONE Stop: 02/01/20 05:29 Last Admin: 02/01/20 05:35 Dose: 6 mg Documented by: Dexamethasone (Dexamethasone) Confirm Administered Dose 8 mg .ROUTE .STK-MED ONE Stop: 02/01/20 05:28 Last Admin: 02/01/20 06:34 Dose: Not Given Documented by: Sodium Chloride (Normal Saline) 1,000 mls @ 999 mls/hr IV .Bolus ONE Stop: 02/01/20 04:14 Last Admin: 02/01/20 03:52 Dose: 999 mls/hr Documented by: Ceftriaxone Sodium/Dextrose 1 (gm/ Premix) 50 mls @ 100 mls/hr IV ONETIME ONE Stop: 02/01/20 03:43 Last Admin: 02/01/20 03:59 Dose: 100 mls/hr Documented by: Azithromycin 500 mg/ Sodium (Chloride) 250 mls @ 250 mls/hr IV ONETIME [facility] Last Admin: 02/01/20 04:31 Dose: 250 mls/hr Documented by: Remdesivir 200 mg/ Sodium (Chloride) 250 mls @ 125 mls/hr IV ONETIME ONE Stop: 02/01/20 10:59 Last Admin: 02/01/20 10:14 Dose: 125 mls/hr Documented by: Potassium Chloride (Klor-Con M20) 20 meq PO ONETIME ONE Stop: 02/01/20 10:40 Last Admin: 02/01/20 12:17 Dose: 20 meq Documented by: - Exam General: Alert, Oriented Neck: Supple Lungs: Clear to Auscultation, Normal Respiratory Effort Cardiovascular: Regular Rate, Regular Rhythm Extremities: Non-Tender, No Pedal Edema Skin: Warm, Dry, Intact Neurological: No New Focal Deficit Sepsis Event Note - Evaluation Sepsis Screening Result: No Definite Risk - Focused Exam Vital Signs: Vital Signs Temp Pulse Resp BP Pulse Ox 02/03/20 08:00 36.9 C 84 18 122/74 96 02/03/20 03:56 35.9 C L 68 16 131/93 H 97 - Problem List Review Problem List Initiated/Reviewed/Updated: Yes - Plan Plan:: 34 yo male admitted with covid pneumonia. Treating with remdesevir, dexamethasone. Patient is on Rocephin and azithromycin for possible bacterial pneumonia. Anticipate discharge home tomorrow.
[2020-02-03] MEDS: cefTRIAXone 1 GM in Premix Bag 1 BAG IV SCH (14:25)
[2020-02-04 06:36] LABS: BLOOD UREA NITROGEN,BUN 16 mg/dL (7.0-18.0); CHLORIDE,CL 102 mmol/L (98-107); GLUCOSE RANDOM 105 mg/dL (74-106); POTASSIUM,K 3.9 mmol/L (3.5-5.1); SODIUM,NA 139 mmol/L (136-148)
[2020-02-04] MEDS: Pantoprazole 40 MG Tab.CR PO SCH (07:04)
[2020-02-04] MEDS: Dexamethasone 4 MG Tab PO SCH (08:16)
[2020-02-04] MEDS: Enoxaparin 40 MG/0.4 ML Syringe SUBCUT SCH (08:37)
--- NOTE | 2020-02-04 10:55 | PCM.DCSUM1 ---
Discharge Summary - Hospital Course Free Text/Narrative:: Patient is a 34-year-old male with no significant past medical history presenting today with acute onset shortness of breath, headache, myalgia, fever/subjective and mild diarrhea. Of note patient did test positive on Tuesday in [facility] for COVID; was exposed to a coworker also tested positive. Patient was also seen at a facility down in [place] and was discharged the following day while on 2 L of supplemental oxygen pt did just recently drive back from [place], [place]; drove straight 12 hours ED course: Chest x-ray showed normal cardiac silhouette with some bilateral hazy opacities consistent with viral pneumonia. EKG showed no evidence of ST elevation and or depression Patient is currently needing 2 L of O2; similar to O2 requirements on discharge from outside facility. Dose of Rocephin and azithromycin started. Given 6 mg p.o. dexamethasone as well Hospital course: Continue to improve throughout stay ; weaned off O2 completely and was afebrile x 24 hours Continued remdesevir and Dexamethasone; received additional doses of azith romycin+CTX; however dramatic improvement with lower suspicion of bacterial CAP; discharged in stable condition, discussed isolation protocols per CDC guidelines Sent home with completed course of steroids X 6-days (discontinued abx) Combivent sent as well PRN for cough /wheezing pt understood and agreed ADvised to return to ED if breathing becomes labored and/or if other symptoms develop. Follow up scheduled. - Discharge Data Discharge Date: 02/04/20 Discharge Disposition: Home, Self-Care 01 Condition: Fair - Referral to Home Health Primary Care Physician: PCP None - Patient Instructions Diet: Usual Diet as Tolerated Notify Provider of: Fever, Nausea and/or Vomiting Other/Special Instructions: Please self isolate per CDC guidelines. Proceed to the emergency department if breathing beecomes difficult - Discharge Plan *PRESCRIPTION DRUG MONITORING PROGRAM REVIEWED*: No *COPY OF PRESCRIPTION DRUG MONITORING REPORT IN PATIENT MARIOLA: No Prescriptions/Med Rec: Albuterol/Ipratropium [Combivent Respimat] 4 gm IH Q4HR PRN 10 Days #1 aer.w.adap PRN Reason: Cough predniSONE [Prednisone] 40 mg PO DAILY 6 Days #12 tablet Home Medications: Home Meds Albuterol/Ipratropium [Combivent Respimat] 4 gm IH Q4HR PRN 10 Days #1 aer.w.adap 02/04/20 [Rx] predniSONE [Prednisone] 40 mg PO DAILY 6 Days #12 tablet 02/04/20 [Rx] Patient Handouts: COVID-19 Frequently Asked Questions, COVID-19, COVID-19: How to Protect Yourself and Others - [facility] [place], Coronavirus Information 08/06/19, Prevent the Spread of COVID-19 if You Are Sick - [facility] Referrals: PCP,None [Primary Care Provider] - - Discharge Summary/Plan Comment DC Time >30 min.: No - Patient Data Vitals - Most Recent: Last Vital Signs Temp 97.1 F 02/04/20 08:12 Pulse 63 02/04/20 08:12 Resp 18 02/04/20 08:12 BP 140/96 H 02/04/20 08:12 Pulse Ox 95 02/04/20 08:12 Weight - Most Recent: 90.718 kg I&O - Last 24 hours: Intake & Output 02/03/20 02/04/20 02/04/20 22:59 06:59 14:59 Intake Total 840 940 Output Total 950 675 Balance -110 265 Lab Results - Last 24 hrs: Laboratory Results - last 24 hr 02/04/20 02/04/20 Range/Units 05:25 05:25 WBC 9.47 (4.0-11.0) K/uL RBC 5.08 (4.50-5.90) M/uL Hgb 14.1 (13.0-17.0) g/dL Hct 43.2 (38.0-50.0) % MCV 85.0 (80.0-98.0) fL MCH 27.8 (27.0-32.0) pg MCHC 32.6 (31.0-37.0) g/dL RDW Std Deviation 41.1 (28.0-62.0) fl RDW Coeff of Leopoldo 13 (11.0-15.0) % Plt Count 308 (150-400) K/uL MPV 9.10 (7.40-12.00) fL Add Manual Diff YES Neutrophils % (Manual) 64 (48.0-80.0) % Band Neutrophils % 4 % Lymphocytes % (Manual) 24 (16.0-40.0) % Monocytes % (Manual) 8 (0.0-15.0) % Absolute Seg Neuts 6.1 H (1.4-5.7) Band Neutrophils # 0.4 Lymphocytes # (Manual) 2.3 (0.6-2.4) Monocytes # (Manual) 0.8 (0.0-0.8) Sodium 139 (136-148) mmol/L Potassium 3.9 (3.5-5.1) mmol/L Chloride 102 (98-107) mmol/L Carbon Dioxide 29.0 (21.0-32.0) mmol/L BUN 16 (7.0-18.0) mg/dL Creatinine 0.8 (0.8-1.3) mg/dL Est Cr Clr Drug Dosing 134.34 mL/min Estimated GFR (MDRD) > 60.0 ml/min Glucose 105 (74-106) mg/dL Calcium 8.1 L (8.5-10.1) mg/dL Total Bilirubin 0.4 (0.2-1.0) mg/dL AST 26 (15-37) IU/L ALT 56 (14-63) IU/L Alkaline Phosphatase 30 L (46-116) U/L Total Protein 6.8 (6.4-8.2) g/dL Albumin 2.7 L (3.4-5.0) g/dL Globulin 4.1 H (2.6-4.0) g/dL Albumin/Globulin Ratio 0.7 L (0.9-1.6) TABATHA Results - Last 24 hrs: Microbiology 02/01/20 03:55 Aerobic Blood Culture - Preliminary Blood - Venous - Lab Draw NO GROWTH AFTER 3 DAYS Anaerobic Blood Culture - Preliminary NO GROWTH AFTER 3 DAYS 02/01/20 03:48 Aerobic Blood Culture - Preliminary Blood - Venous NO GROWTH AFTER 3 DAYS Anaerobic Blood Culture - Preliminary NO GROWTH AFTER 3 DAYS Med Orders - Current: Current Medications Acetaminophen (Tylenol Extra Strength) 500 mg PO Q4H PRN PRN Reason: Fever Dexamethasone (Dexamethasone) 6 mg PO DAILY [facility] Last Admin: 02/04/20 08:16 Dose: 6 mg Documented by: Enoxaparin Sodium (Lovenox) 40 mg SUBCUT Q24H [facility] Last Admin: 02/04/20 08:37 Dose: 40 mg Documented by: Remdesivir 100 mg/ Sodium (Chloride) 100 mls @ 100 mls/hr IV Q24H [facility] Stop: 02/05/20 11:44 Last Admin: 02/03/20 11:04 Dose: 100 mls/hr Documented by: Ceftriaxone Sodium/Dextrose 1 (gm/ Premix) 50 mls @ 100 mls/hr IV Q24H [facility] Last Admin: 02/03/20 14:25 Dose: 100 mls/hr Documented by: Azithromycin 500 mg/ Sodium (Chloride) 250 mls @ 250 mls/hr IV Q24H [facility] Last Admin: 02/03/20 12:19 Dose: 250 mls/hr Documented by: Pantoprazole Sodium (Protonix) 40 mg PO ACBREAKFAST [facility] Last Admin: 02/04/20 07:04 Dose: 40 mg Documented by: Sodium Chloride (Saline Flush) 10 ml FLUSH ASDIRECTED PRN PRN Reason: Keep Vein Open Sodium Chloride (Saline Flush) 2.5 ml FLUSH ASDIRECTED PRN PRN Reason: Keep Vein Open Discontinued Medications Acetaminophen (Tylenol Extra Strength) 1,000 mg PO ONETIME ONE Stop: 02/01/20 03:15 Last Admin: 02/01/20 03:50 Dose: 1,000 mg Documented by: Dexamethasone (Dexamethasone) 10 mg IVPUSH ONETIME ONE Stop: 02/01/20 03:15 Last Admin: 02/01/20 03:52 Dose: 10 mg Documented by: Dexamethasone (Dexamethasone) 6 mg PO NOW STA Stop: 02/01/20 05:12 Last Admin: 02/01/20 05:30 Dose: Not Given Documented by: Dexamethasone (Dexamethasone) 6 mg PO ONETIME ONE Stop: 02/01/20 05:29 Last Admin: 02/01/20 05:35 Dose: 6 mg Documented by: Dexamethasone (Dexamethasone) Confirm Administered Dose 8 mg .ROUTE .STK-MED ONE Stop: 02/01/20 05:28 Last Admin: 02/01/20 06:34 Dose: Not Given Documented by: Sodium Chloride (Normal Saline) 1,000 mls @ 999 mls/hr IV .Bolus ONE Stop: 02/01/20 04:14 Last Admin: 02/01/20 03:52 Dose: 999 mls/hr Documented by: Ceftriaxone Sodium/Dextrose 1 (gm/ Premix) 50 mls @ 100 mls/hr IV ONETIME ONE Stop: 02/01/20 03:43 Last Admin: 02/01/20 03:59 Dose: 100 mls/hr Documented by: Azithromycin 500 mg/ Sodium (Chloride) 250 mls @ 250 mls/hr IV ONETIME [facility] Last Admin: 02/01/20 04:31 Dose: 250 mls/hr Documented by: Remdesivir 200 mg/ Sodium (Chloride) 250 mls @ 125 mls/hr IV ONETIME ONE Stop: 02/01/20 10:59 Last Admin: 02/01/20 10:14 Dose: 125 mls/hr Documented by: Sodium Chloride (Normal Saline) 250 mls @ 999 mls/hr IV BOLUS [facility] Last Admin: 02/02/20 10:11 Dose: 999 mls/hr Documented by: Potassium Chloride (Klor-Con M20) 20 meq PO ONETIME ONE Stop: 02/01/20 10:40 Last Admin: 02/01/20 12:17 Dose: 20 meq Documented by:
[2020-02-04] MEDS ORDERED: Azithromycin 250 MG Tab PO SCH (11:00)
[2020-02-04] MEDS ORDERED: cefTRIAXone 1 GM in Premix Bag 1 BAG IV SCH (11:00)
[2020-02-04] MEDS: REMDESIVIR (EUA) 100 MG in Sodium Chloride 0.9% 100 ML IV SCH (11:32)
== END 2020-02-04 14:42 | disposition home or self-care (01) | DRG 137 ==
LOC: MW.ED 02:49 → MW.MS 05:24
PROVIDERS: ADMIT Internal Medicine; ATTEND Internal Medicine
PROC: XW033E5 Introduction of Remdesivir Anti-infective into Peripheral Vein, Percutaneous Approach, New Technology Group 5 (ICD-10-PCS; principal; 2020-02-01)
PROC: XW033E5 Introduction of Remdesivir Anti-infective into Peripheral Vein, Percutaneous Approach, New Technology Group 5 (ICD-10-PCS; 2020-02-01)
PROC: XW033E5 Introduction of Remdesivir Anti-infective into Peripheral Vein, Percutaneous Approach, New Technology Group 5 (ICD-10-PCS; 2020-02-01)
PROC: XW033E5 Introduction of Remdesivir Anti-infective into Peripheral Vein, Percutaneous Approach, New Technology Group 5 (ICD-10-PCS; 2020-02-01)
DX: U07.1 COVID-19 (principal); J12.89 Other viral pneumonia; J96.01 Acute respiratory failure with hypoxia; E87.6 Hypokalemia
CPT/HCPCS: 36415; 36600; 71045; 71045-26; 80053; 82803; 83605; 84484; 85025; 85379; 87040; 93005; 96365; 96367; 96375; 99285-25; A9270-GY; J0456; J0696; J1100; J1650; J7030; J7050; J8540